=== PATIENT | male | born 1945 | race Caucasian/White ===

== ENCOUNTER 2016-12-23 07:00 | Observation (INO) | payer MEDICARE ==
[~2016-12-23] VITALS: Ht 162.6 cm; Wt 77.3 kg
[~2016-12-23 07:00] MED LIST: FINA5TAB2 PO; FLUT50SP EACH NARE; LEVO125T4 PO; LISI2.5T3 PO; METF500T PO; OMEP40CA2 PO; PLAV75TA29 PO; SIMV40TA PO; TAMS0.4C4 PO; TERA2CAP3 PO
[2016-12-23] MEDS ORDERED: LIDOCAINE 1%/EPINEPHrine 1:100,000 SOLN 30 ML VIAL ONE (07:10)
[2016-12-23] MEDS ORDERED: OXYMETAZOLINE HCL 0.05% 15 ML NASAL SPRAY ONE (07:10)
[2016-12-23] MEDS ORDERED: BACITRACIN TOP OINT 15 GM TUBE ONE (07:11)
[2016-12-23] MEDS ORDERED: SODIUM CHLORID 0.9% 500 ML IV SCH (08:00)
[2016-12-23] MEDS ORDERED: AMPICILLIN/SULBAC 3 GM/NS 100 ML IV SCH ×2 (08:00)
[2016-12-23] MEDS ORDERED: INSULIN HUMAN REGULAR 1,000 UNITS/10 ML VIAL SQ PRN (08:00)
[2016-12-23] MEDS ORDERED: METOPROLOL TARTRATE 25 MG TAB PO PRN (08:00)
[2016-12-23] MEDS ORDERED: LACTATED RINGER'S 1000 ML IV SCH (08:00)
[2016-12-23 08:03] VITALS: BP 159/80; PULSE 68; RESP 16; TEMP 97.9; O2SAT 98
[2016-12-23] MEDS ORDERED: FAMOTIDINE 20 MG/2 ML VIAL ONE (09:48)
[2016-12-23] MEDS ORDERED: MIDAZOLAM HCL 2 MG/2 ML VIAL ONE (09:48)
[2016-12-23] MEDS ORDERED: ACETAMINOPHEN/HYDROcodone 325 MG/5 MG TAB PO PRN (11:30)
[2016-12-23] MEDS ORDERED: SODIUM CHLORIDE FLUSH PRN IVF (11:30)
[2016-12-23] MEDS: LACTATED RINGER'S 1000 ML INJ 1,000 ML IV SCH (11:30)
[2016-12-23] MEDS ORDERED: ONDANSETRON HCL 4 MG/2 ML VIAL IV PUSH PRN (11:30)
[2016-12-23] MEDS ORDERED: DO NOT ADM ANY ANTICOAGULANT DRUGS XX PRN (11:45)
[2016-12-23] MEDS ORDERED: ONDANSETRON HCL 4 MG/2 ML VIAL IV PUSH ONE (12:00)
[2016-12-23] MEDS ORDERED: TERAZOSIN HCL 1 MG CAP PO SCH (12:00)
[2016-12-23] MEDS ORDERED: ePHEDrine/NS 25 MG/5 ML SYR IV ONE (12:00)
[2016-12-23] MEDS ORDERED: LACTATED RINGER'S 1000 ML INJ 2,000 ML IV ONE (12:00)
[2016-12-23] MEDS ORDERED: metFORMIN HCL 500 MG TAB PO SCH (12:00)
[2016-12-23] MEDS ORDERED: PANTOPRAZOLE SOD 40 MG DELAYED RELEASE TAB PO SCH (12:00)
[2016-12-23] MEDS ORDERED: FINASTERIDE 5 MG TAB PO SCH (12:00)
[2016-12-23] MEDS ORDERED: PILL SPLITTER OTHER PRN (12:00)
[2016-12-23] MEDS ORDERED: CLOPIDOGREL 75 MG TAB PO SCH (12:00)
[2016-12-23] MEDS ORDERED: NEOSTIGMINE 3 MG/3 ML SYR IV ONE (12:00)
[2016-12-23] MEDS ORDERED: LISINOPRIL 5 MG TAB PO SCH (12:00)
[2016-12-23] MEDS ORDERED: PROPOFOL 200 MG/20 ML AMP IV ONE (12:00)
[2016-12-23] MEDS: LEVOTHYROXINE SODIUM 125 MCG TAB PO SCH (13:14)
[2016-12-23] MEDS: AMPICILLIN/SULBAC 3 GM/NS 100 ML IV SCH ×4 (15:33→22:22)
[2016-12-23 18:34] VITALS: BP 169/77; PULSE 65; RESP 20; TEMP 96.8; O2SAT 98
[2016-12-23 19:30] VITALS: BP 150/70; PULSE 66; RESP 18; TEMP 97.6; O2SAT 95
[2016-12-23 19:42] VITALS: O2SAT 94
[2016-12-23] MEDS ORDERED: PRAVASTATIN SOD 80 MG TAB PO SCH (21:00)
[2016-12-23] MEDS ORDERED: TAMSULOSIN HCL 0.4 MG CAP PO SCH (21:00)
[2016-12-23] MEDS ORDERED: SODIUM CHLORIDE FLUSH BID IVF SCH (21:00)
[2016-12-24 00:16] VITALS: BP 137/66; PULSE 73; RESP 20; TEMP 97.8; O2SAT 96
[2016-12-24] MEDS: LACTATED RINGER'S 1000 ML INJ 1,000 ML IV SCH (00:27)
[2016-12-24] MEDS: AMPICILLIN/SULBAC 3 GM/NS 100 ML IV SCH ×2 (04:18)
[2016-12-24 04:43] VITALS: BP 125/61; PULSE 63; RESP 18; TEMP 97.1; O2SAT 96
[2016-12-24] MEDS: LEVOTHYROXINE SODIUM 125 MCG TAB PO SCH (05:26)
[2016-12-24 07:48] VITALS: BP 131/65; PULSE 65; RESP 18; TEMP 96.3; O2SAT 96
[2016-12-24] MEDS ORDERED: CEFP250T PO (08:59)
[2016-12-24] MEDS ORDERED: HYDR-4107 PO (08:59)
[2016-12-30] MEDS ORDERED: FLUTICASONE PROPIONATE 50 MCG/ACT 16 GM NASAL SPRAY NASAL SCH (09:00)
--- NOTE | 2017-01-11 08:33 | MP ---
cc: ALISSA GILES M.D. DATE OF SURGERY: December 23, [address] Alissa Giles. PREOPERATIVE DIAGNOSIS 1. Nasal airway obstruction. 2. Nasal septal deviation. 3. Hypertrophy of inferior turbinates. POSTOPERATIVE DIAGNOSIS 1. Nasal airway obstruction. 2. Nasal septal deviation. 3. Hypertrophy of inferior turbinates. OPERATION PERFORMED 1. Open repair nasal septal fracture. 2. Bilateral submucosal resection of inferior turbinates. INDICATIONS Indications are documented in the history and physical. DESCRIPTION OF OPERATION The patient was taken to OR #2 and placed in the supine position. Following induction of general anesthesia and intubation the nose was packed bilaterally with cotton pledgets saturated in 0.05% Oxymetazoline. The nasal septal mucosa and the inferior turbinates were then injected with a total of 8 mL of 1% Xylocaine with epinephrine 1:100,000. He was then prepped and draped for surgery. Packing was removed and a helen-transfixion incision was made in the left nasal vestibule and through this incision the mucosa of septum was elevated bilaterally as far as the junction of the bony and cartilaginous septum. This exposed the quadrangular cartilage which showed severe deviation toward the right with evidence of a long healed nasal septal fracture. Numerous lines of angulation at the junctions of the fracture segments, a cumulative area of 2 x 2.5 cm of quadrangular cartilage was removed, preserving 1.5 cm dorsal and caudal cartilaginous struts. The anterior end of the quadrangular cartilage was mobilized and returned to the midline and sewn in place to the anterior nasal spine using a single suture of 4-0 chromic. When this was completed the mucosa was elevated from the bony septum and the bony septum was removed using Strong Lloyd forceps. The maxillary crest was removed using a 6-mm [place] chisel preserving the anterior nasal spine. The incision was then closed with a running suture of 4-0 chromic and mucosal layers of septum were approximated to each other with a quilting stitch of 4-0 plain gut. The inferior turbinates were then fractured out medially and stab incisions were opened along their inferior surfaces. The submucosal soft tissue was reduced using a curette and preserving the conchal bone. Incisions were then cauterized using the suction Bovie at 35 boone. The remnants of the inferior turbinates were then re-lateralized to the lateral nasal wall. The nose was packed with Merocel tampons coated with bacitracin ointment. The procedure was terminated. The patient was then reversed from anesthesia and taken to recovery in good condition. There were no complications. Blood loss was 40 mL. MD MARIA ESTHER Crawley/ANDREA /5:59 AM /8:24 AM
[2017-02-09] MEDS ORDERED: NYST1000 SWISH-SWAL (13:47)
== END 2016-12-24 09:56 | disposition home or self-care (01) ==
LOC: HSDC 07:00 → N05B 17:45
PROVIDERS: ADMIT Otolaryngology; ATTEND Otolaryngology
DX: J34.2 Deviated nasal septum (principal); J34.3 Hypertrophy of nasal turbinates; I10 Essential (primary) hypertension; I25.10 Atherosclerotic heart disease of native coronary artery without angina pectoris; E11.9 Type 2 diabetes mellitus without complications; Z98.61 Coronary angioplasty status
CPT/HCPCS: 00160; 21336; 30140; 82948; 94762; G0378; J0295; J2250; J2405; J2710; J3010; J7120

== ENCOUNTER 2018-02-23 00:02 | Emergency (ER) | payer MEDICARE ==
[~2018-02-23] VITALS: Ht 162.6 cm; Wt 70.0 kg
[~2018-02-23 00:02] MED LIST changes: +CEFP250T PO; +FLUO20CA12 PO; +HYDR-4107 PO; +LEVO100T5 PO; -LEVO125T4 PO; -LISI2.5T3 PO
[2018-02-23 01:04] VITALS: BP 173/77; PULSE 67; RESP 18; TEMP 97.5; O2SAT 100
== END 2018-02-23 02:53 | disposition left against medical advice (07) ==
LOC: NED 00:02
DX: R10.9 Unspecified abdominal pain (principal)
CPT/HCPCS: 99281